=== PATIENT | female | born 1990 | race Two or more races ===

== ENCOUNTER 2020-09-01 03:43 | Observation (INO) | payer SELFPAY ==
[2018-01-25 16:18] VITALS: BP 118/69
[~2020-09-01 03:43] MED LIST: ACET-704 PO; IBUP-1060 PO; PNV1TABL25 PO; PREN1TAB58 PO
[2020-09-01] MEDS ORDERED: ONDANSETRON PF 4 MG/2 ML VIAL. IVP PRN (03:45)
[2020-09-01] MEDS ORDERED: IV RINGERS,LACTATED 1000ML 1,000 ML IV SCH (03:45)
[2020-09-01] MEDS ORDERED: ACETAMINOPHEN 500 MG TABLET PO PRN (04:00)
[2020-09-01 04:10] LABS: BILIRUBIN,URINE NEGATIVE (NEG); CLARITY,URINE CLEAR; COLOR,URINE YELLOW; NITRITE,URINE NEGATIVE (NEG); PROTEIN,URINE NEGATIVE (NEG-TRACE); UROBILINOGEN,URINE 0.2 mg/dL (0.2 mg/dL)
[2020-09-01] MEDS ORDERED: IV RINGERS,LACTATED 1000ML 1,000 ML IV PRN (04:15)
[2020-09-01 04:23] LABS: BACTERIA,URINE 0 /HPF (0-FEW); RBC,URINE 0 /HPF (0-2); WBC,URINE RARE /HPF (0-4)
[2020-09-01 04:27] LABS: AMPHETAMINE/METHAMPHETAMINE NEG (NEG); BARBITURATES NEG (NEG); BENZODIAZEPINES NEG (NEG); CANNABINOIDS NEG (NEG); COCAINE NEG (NEG); METHADONE NEG (NEG); OPIATES NEG (NEG); PHENCYCLIDINE NEG (NEG)
== END 2020-09-01 05:53 | disposition home or self-care (01) ==
LOC: 3 SO LND 03:43
PROVIDERS: ADMIT Obstetrics & Gynecology; ATTEND Obstetrics & Gynecology
DX: O62.9 Abnormality of forces of labor, unspecified (principal); O99.891 Other specified diseases and conditions complicating pregnancy; M54.9 Dorsalgia, unspecified; R10.9 Unspecified abdominal pain; Z3A.37 37 weeks gestation of pregnancy; Z79.899 Other long term (current) drug therapy
CPT/HCPCS: 59025; 80307; 81001; G0378; G0379

== ENCOUNTER → 2020-10-02 | Outpatient (CLI) | payer SELFPAY ==
[2018-01-25 16:18] VITALS: BP 118/69
[~2020-10-02] MED LIST changes: +DOCU-109 PO
== END ==
LOC: LAB 14:12
PROVIDERS: ATTEND Obstetrics & Gynecology
DX: Z01.812 Encounter for preprocedural laboratory examination (principal); Z20.822 Contact with and (suspected) exposure to COVID-19
CPT/HCPCS: U0003; U0005